=== PATIENT | female | born 1950 | race Caucasian/White ===

== ENCOUNTER 2017-03-19 19:15 | Emergency (ER) | payer MEDICARE, MEDICAID ==
[2017-03-19] MEDS ORDERED: Oxycodone/Acetaminophen 5/325 mg Tab PO STA (19:50)
[2017-03-19] MEDS ORDERED: Oxycodone/Acetaminophen 5/325 mg Tab ONE (19:59)
--- NOTE | 2017-03-19 21:37 | C.PDOC ---
History Of Present Illness 67 yr old female brought in via EMS, presents to the ER s/p slip and fall, landing on her back [employer]. Patient states she slipped down 7 stairs, hitting her back and right hip. Denies LOC, head injury, chest pain, SOB, nausea, vomiting, weakness or numbness. - HPI Time Seen by Provider: 03/19/17 19:34 Chief Complaint (Nursing): Trauma History Per: Patient History/Exam Limitations: no limitations Onset/Duration Of Symptoms: Days ([employer]) Past Medical History Reviewed: Historical Data, Nursing Documentation, Vital Signs Vital Signs: Last Vital Signs Temp 98.3 F 03/19/17 22:42 Pulse 70 03/19/17 22:42 Resp 18 03/19/17 22:42 BP 173/74 H 03/19/17 22:42 Pulse Ox 99 03/20/17 02:19 - Medical History PMH: HTN Surgical History: Cholecystectomy Family History: States: No Known Family Hx - Social History Hx Alcohol Use: No Hx Substance Use: No - Immunization History Hx Tetanus Toxoid Vaccination: No Hx Influenza Vaccination: No Hx Pneumococcal Vaccination: No Review Of Systems Except As Marked, All Systems Reviewed And Found Negative. Cardiovascular: Negative for: Chest Pain Respiratory: Negative for: Shortness of Breath Gastrointestinal: Negative for: Nausea, Vomiting Musculoskeletal: Positive for: Back Pain, Other ((+) right hip pain) Neurological: Negative for: Weakness, Numbness Physical Exam - Physical Exam Appears: Non-toxic, No Acute Distress Skin: Warm, Dry, No Rash Head: Atraumatic, Normacephalic Eye(s): bilateral: Normal Inspection, PERRL, EOMI Oral Mucosa: Moist Back: Other ((+) tenderness lower spine and coccyx) Extremity: No Calf Tenderness, No Deformity, No Swelling, Other (Right Hip :(+) Tenderness. Limited ROM due to pain. Left Foot :Echymosis and tenderness to the dorsal aspect, full ROM.) Neurological/Psych: Oriented x3, Normal Speech, Normal Motor, Normal Sensation Gait: Unable To Assess ED Course And Treatment O2 Sat by Pulse Oximetry: 99 (RA) Pulse Ox Interpretation: Normal - Other Rad X-Ray - Left Foot X-Ray: Interpreted by Me, Viewed By Me Interpretation: NO fx X-Ray - Right Hip w/ Pelvis X-Ray: Interpreted by Me, Viewed By Me Interpretation: NO fx, arthritic changes X-Ray - LS X-Ray: Viewed By Me Interpretation: NO fx, arthritic changes X-Ray - Sacrum X-Ray: Interpreted by Me, Viewed By Me Interpretation: NO fx, arthritic changes Progress Note: On reassessment pt reorts improved pain, and is able to ambulate in ED. XR d/w pt and was informed that ruben be contacted for any changes from radiology report. Pt advised to follow up with PMD Reassessment Condition: Improved Medical Decision Making Medical Decision Making: PLAN: * X-Ray - Left Foot, Right Hip w/ Pelvis, LS, Sacrum * Percocet PO * Tylenol PO * Toradol IM Disposition Counseled Patient/Family Regarding: Diagnosis, Need For Followup - Disposition Referrals: Froylan Murray MD [Medical Doctor] - Disposition: HOME/ ROUTINE Disposition Time: 23:19 Condition: STABLE Additional Instructions: Take meds as prescribed Follow up with PMD Return to ER if worse Prescriptions: Acetaminophen with Codeine [Tylenol with Codeine #3 Tablet] 1 each PO PRN PRN # 10 tablet PRN Reason: Pain, Severe (8-10) Naproxen [Naprosyn] 1 tab PO BID PRN #25 tab PRN Reason: Pain Instructions: Back Pain (ED), Hip Contusion (ED) Forms: [employer] (Latvian) Print Language: BHUTANESE - Clinical Impression Clinical Impression: Low back pain, Contusion of back, Contusion, hip - PA / [employer] / Resident Statement MD/DO has reviewed & agrees with the documentation as recorded. - Scribe Statement The provider has reviewed the documentation as recorded by the Piaibmarin Gonsalves All medical record entries made by the Piaibmarin were at my direction and personally dictated by me. I have reviewed the chart and agree that the record accurately reflects my personal performance of the history, physical exam, medical decision making, and the department course for this patient. I have also personally directed, reviewed, and agree with the discharge instructions and disposition.
[2017-03-19 22:43] VITALS: BP 173/74; PULSE 70; RESP 18; TEMP 98.3
[2017-03-19] MEDS ORDERED: Naproxen 550 mg Tab PO STA (22:58)
[2017-03-19] MEDS ORDERED: Naproxen 550 mg Tab PO ONE (23:07)
[2017-03-19 23:21] VITALS: O2SAT 99
--- NOTE | 2017-03-20 09:23 | RAD ---
PROCEDURE: Radiographs of the Sacrum and Coccyx HISTORY: pain, fall COMPARISON: None available. TECHNIQUE: Frontal and lateral views of the sacrum and coccyx FINDINGS: BONES: Sacrum and coccyx unremarkable. No fracture or focal lesion. SACROILIAC JOINTS: Unremarkable. OTHER FINDINGS: None. IMPRESSION: Unremarkable radiographs of the sacrum and coccyx.
--- NOTE | 2017-03-20 09:25 | RAD ---
PROCEDURE: Right Hip Radiographs. HISTORY: pain, fall slid on rear down 7 steps COMPARISON: None. FINDINGS: BONES: . No fracture. JOINTS: Bilateral hip arthrosis right greater than left SOFT TISSUES: Normal. OTHER FINDINGS: None. IMPRESSION: No fracture.Bilateral hip arthrosis right greater than left
--- NOTE | 2017-03-20 09:27 | RAD ---
PROCEDURE: Radiographs of the Lumbar Spine. HISTORY: pain, fall, slid on stairs hit back COMPARISON: No prior. FINDINGS: BONES: Normal alignment. No listhesis. No fracture. Moderate inferior thoracic and mild lumbar spondylosis DISC SPACES: Unremarkable. OTHER FINDINGS: Atherosclerotic vascular disease IMPRESSION: No fracture or subluxation Thoraco lumbar spondylosis Atherosclerotic vascular disease
--- NOTE | 2017-03-20 09:29 | RAD ---
PROCEDURE: Left Foot Radiographs. HISTORY: pain, fall, ecchymosis dorsal foot COMPARISON: None. FINDINGS: BONES: . No fracture. . Posterior calcaneal spurring - blending Achilles tendons insertional enthesophyte JOINTS: First metatarsal-phalangeal joint and dorsal tarsal metatarsal osseous hypertrophic arthrosis SOFT TISSUES: Normal. OTHER FINDINGS: Os peroneum -developmental variant IMPRESSION: No fracture. Arthrosis
== END 2017-03-19 23:25 | disposition home or self-care (01) ==
LOC: C.ER 19:15
DX: M54.5 Low back pain (principal); S30.0XXA Contusion of lower back and pelvis, initial encounter; S70.01XA Contusion of right hip, initial encounter; W10.8XXA Fall (on) (from) other stairs and steps, initial encounter; Y92.89 Other specified places as the place of occurrence of the external cause
CPT/HCPCS: 72100; 72220; 73501; 73630; 96372; 99285; J1885